=== PATIENT | female | born 1990 | race Caucasian/White ===

== ENCOUNTER 2016-09-24 05:26 | Emergency (ER) ==
--- NOTE | 2016-09-24 05:39 | PROVIDER DOCUMENTATION ---
HPI-Abdominal Pain/GI Problem - General Chief Complaint: Abdominal Pain Stated Complaint: GALL BLADDER Time Seen by Provider: 09/24/16 05:39 Source: patient, family Allergies/Adverse Reactions: Patient Allergies Allergy/AdvReac Type Severity Reaction Status Date / Time hydrocodone Allergy ITCHING Verified 09/24/16 05:35 meperidine HCl * Allergy Unknown Verified 09/24/16 05:35 [From Demerol] Home Medications: Home Medication List Medication Instructions Recorded Confirmed Last Taken Type Ondansetron Odt [Zofran 4 mg Odt] 4 mg PO Q6H PRN PRN #15 tablet 09/24/16 Unknown Rx Sulfamethoxazole/Trimethoprim 2 each PO BID #40 tablet 09/24/16 Unknown Rx [Bactrim Ds Tablet] - History of Present Illness-ABD Abdominal Pain Onset Location: reports: [facility] Pain Radiation: reports: no radiation Quality of Pain: reports: aching, dull Severity in ED: reports: mild Onset/Duration: reports: 1-3 hours ago Timing: reports: still present Activities at Onset: reports: none Exposure to sick contacts?: Yes Modifying Factors: improves with: analgesics Associated Symptoms: reports: cough, muscle aches, seizure, weakness Rectal Pain: reports: none Bruising or Bleeding Gums?: Yes Similar Symptoms Previously?: Yes Review of Systems - Adult - REVIEW OF SYSTEMS - ADULT Constitutional: reports: no symptoms reported Eyes: reports: no symptoms reported Ears, Nose, Mouth & Throat: reports: no symptoms reported Cardiovascular: reports: no symptoms reported Respiratory: reports: no symptoms reported Gastrointestinal: reports: no symptoms reported Genitourinary: reports: no symptoms reported Musculoskeletal: reports: no symptoms reported Integumentary: reports: no symptoms reported Neurological: reports: no symptoms reported Psychiatric: reports: no symptoms reported Endocrine: reports: no symptoms reported Hematologic/Lymphatic: reports: no symptoms reported Allergic/Immunologic: reports: no symptoms reported All Other Systems: Reviewed and Negative Past History - Adult - PAST MEDICAL HISTORY-ADULT Review of Records: reports: Old Records Reviewed, Nursing Assessment Review, Medications Reviewed, Social history reviewed & non-contributory. Major Childhood Illnesses: reports: denies history Cardiovascular: reports: denies history Respiratory: reports: denies history Gastrointestinal: reports: denies history Obstetrical/Gynecological: reports: denies history Genitourinary: reports: denies history Musculoskeletal: reports: denies history Neurological: reports: denies history Endocrine/Immune: reports: denies history Other Conditions: reports: denies history - FAMILY HISTORY Family History: reviewed, not pertinent Physical Exam-General - PHYSICAL EXAM-ADULT Initial Vital Signs Reviewed: Yes - CONSTITUTIONAL General Appearance: appears well - EYES Eyes: pink conjunctivae - HEAD, EARS, NOSE, MOUTH & THROAT HENMT: moist mucous membranes - NECK Neck: non-tender - RESPIRATORY Respiratory: chest non-tender - CARDIOVASCULAR Cardiovascular: normal peripheral pulses - GASTROINTESTINAL (ABDOMEN) Abdominal Exam: no organomegaly - LYMPHATIC Lymphatic: no adenopathy - MUSCULOSKELETAL Back Exam: normal inspection Extremity: normal range of motion Departure - Departure Time of Disposition Order: 05:30 DIAGNOSIS: Abdominal pain, sinusitis Disposition: HOME 01 Certified Medical Emergency: Emergent Condition: Stable Additional Instructions: ED Follow Up Instructions: You have been treated by a care provider in the Emergency Department. These instructions are being provided to you so you can have an understanding of how to care for yourself upon discharge. Upon discharge from the Emergency Department, you are responsible for making arrangements for follow-up care by a physician of your choice. Take all prescribed medications as directed. Return to the Emergency Department immediately for any new or worsening symptoms. You may call the Physician Referral phone number at [phone] to obtain a list of Physicians who are taking new patients. Prescriptions: Sulfamethoxazole/Trimethoprim [Bactrim Ds Tablet] 2 each PO BID #40 tablet Ondansetron Odt [Zofran 4 mg Odt] 4 mg PO Q6H PRN PRN #15 tablet PRN Reason: Nausea Referrals: Ryan Espinoza [Primary Care Provider] - Forms: Return to School/Parent Work Instructions: Ondansetron tablets, Nausea and Vomiting, [id number], Abdominal Pain, Adult, [id number], Sulfamethoxazole; Trimethoprim, SMX-TMP tablets
[2016-09-24 06:01] LABS: URINE CULTURE PL NEEDED? NO; URINE SOURCE CLEAN CATCH
[2016-09-24] MEDS ORDERED: ZOFRAN ODT PO ONE (06:03)
[2016-09-24 06:04] LABS: MANUAL DIFF NEEDED? NO
[2016-09-24 06:06] LABS: BASO% 0.3 % (0.0-0.8); EOS# 0.06 X1000 (0.0-0.7); HEMATOCRIT 38.4 % (37.0-47.0); IMM GRAN# 0.01 X1000 (0.0-0.04); IMM GRAN% 0.2 % (0.0-0.5); LYMPH# 1.09 X1000 (1.2-3.4); MCH 30.4 PG (27-31); MCHC 33.9 g/dL (33-37); MCV 89.9 FL (81-99); MONO# 0.33 X1000 (0.11-0.59); MONO% 5.5 % (1.7-9.3); MPV 9.2 FL (7.4-10.4); PLT 250 X1000 (130-400); RBC 4.27 XMIL (4.2-5.4)
[2016-09-24 06:16] LABS: BILIRUBIN URINE NEGATIVE (NEGATIVE); BLOOD URINE NEGATIVE (NEGATIVE); CLARITY CLEAR (CLEAR); COLOR YELLOW; GLUCOSE URINE NEGATIVE (NEGATIVE); LEUKOCYTES URINE NEGATIVE (NEGATIVE); NITRITE URINE NEGATIVE (NEGATIVE); PROTEIN URINE NEGATIVE (NEGATIVE); UROBILINOGEN URINE NORMAL
[2016-09-24 06:17] LABS: URINE EPITHELIAL CELLS <10 /HPF (<10); URINE WBC <10 /HPF (<10)
[2016-09-24 06:23] LABS: AGAP 11; ALBUMIN 4.7 g/dL (3.5-5.0); ALKALINE PHOSPHATASE 49 U/L (32-104); AMYLASE 51 U/L (20-200); BUN 8 mg/dL (8-22); CALCIUM 9.4 mg/dL (8.8-10.2); CHLORIDE 104 mmol/L (98-107); COSMO 279; GOT 18 U/L (10-30); GPT 11 U/L (10-36); LIPASE 21 U/L (13-60); POTASSIUM 3.9 mmol/L (3.5-5.1); SODIUM 140 mmol/L (136-145); TCO2 25 mmol/L (25-35); TOTAL PROTEIN 7.7 g/dL (6.3-8.3)
[2016-09-24] MEDS ORDERED: G.I. COCKTAIL PO ONE (06:42)
[2016-09-24 07:03] VITALS: BP 106/65
== END 2016-09-24 07:02 | disposition home or self-care (01) ==
LOC: P.ED 05:26
DX: J32.9 Chronic sinusitis, unspecified (principal); R10.11 Right upper quadrant pain; R05 Cough; M79.1 Myalgia; R53.1 Weakness; R51 Headache
CPT/HCPCS: 36415; 80053; 81001; 81025; 82150; 83690; 85025; 99283